=== PATIENT | female | born 1985 | race African-American/Black ===

== ENCOUNTER 2019-02-07 21:39 | Emergency (ER) | payer BC, OTHER ==
[~2019-02-07] VITALS: Ht 167.6 cm; Wt 68.0 kg
[2019-02-07] MEDS ORDERED: FAMOTIDINE 20MG TABLET PO ONE (23:30)
[2019-02-07] MEDS ORDERED: DEXAMETHASONE 10 MG/ML VIAL IM ONE (23:30)
[2019-02-08 00:35] VITALS: BP 119/71
== END 2019-02-08 00:36 | disposition home or self-care (01) ==
LOC: ER 21:39
DX: T78.1XXA Other adverse food reactions, not elsewhere classified, initial encounter (principal); Z98.890 Other specified postprocedural states; X58.XXXA Exposure to other specified factors, initial encounter
CPT/HCPCS: 96372; 99283; J1100

== ENCOUNTER 2023-02-27 23:05 | Emergency (ER) | payer OTHER ==
[~2023-02-27] VITALS: Ht 167.6 cm; Wt 70.4 kg
[2023-02-28] MEDS ORDERED: LIDOCAINE 5% PATCH TOP SCH (00:30)
[2023-02-28] MEDS ORDERED: LIDO700A15 TP (00:32)
[2023-02-28 01:09] VITALS: BP 136/71
== END 2023-02-28 01:10 | disposition home or self-care (01) ==
LOC: ER 23:05
DX: O26.891 Other specified pregnancy related conditions, first trimester (principal); S13.4XXA Sprain of ligaments of cervical spine, initial encounter; Z3A.01 Less than 8 weeks gestation of pregnancy; G89.11 Acute pain due to trauma; V49.49XA Driver injured in collision with other motor vehicles in traffic accident, initial encounter; Y93.89 Activity, other specified; Y92.89 Other specified places as the place of occurrence of the external cause; Y99.8 Other external cause status
CPT/HCPCS: 99283